=== PATIENT | male | born 1985 ===

== ENCOUNTER 2016-12-16 16:57 | Emergency (ER) | payer SELFPAY ==
[~2016-12-16] VITALS: Ht 165.1 cm; Wt 86.0 kg
[2016-12-16 16:59] VITALS: Ht 165.1 cm; Wt 86.0 kg
[2016-12-16] MEDS ORDERED: KETOROLAC 30 MG INJ IM STA (18:07)
--- NOTE | 2016-12-16 19:06 | RADRPT ---
PROCEDURE: X-ray right foot CLINICAL INDICATION: Injury to the right foot status post fall TECHNIQUE: 3 views right foot COMPARISON: None FINDINGS: Intra-articular fracture of the proximal metaphysis of the fourth metatarsal. Remaining osseous str uctures are without evident acute fracture. Soft tissue swelling over the dorsum of the foot. IMPRESSION: Intra-articular fracture of the proximal metaphysis of the fourth metatarsal. RPTAT: [facility] Physician Bibi Date Time Electronically viewed and signed by Kimmy Walker Physician on 12/16/2016 19:06 RS/
[2016-12-16] MEDS ORDERED: IBUP-1542 PO (19:23)
[2016-12-16] MEDS ORDERED: HYDR-906 PO (19:30)
--- NOTE | 2016-12-16 19:51 | ERD ---
ER Documentation Chief Complaint Date/Time DATE: 12/16/16 TIME: 19:48 Chief Complaint 10/10 r. foot pain x 1 day fall at park [facility] This is a 31-year-old male presents complaining of right dorsal foot pain status post ground-level fall that [place] a park yesterday. Patient states the pain is 10 out of 10. Patient denies taking any medications for this ROS All systems reviewed and are negative except as per history of present illness. Medications Home Meds Active Scripts Hydrocodone/Acetaminophen ([place] 5-325 Tablet) 1 Each Tablet, 1 TAB PO Q6H Y for PAIN, #20 TAB Prov:PRANAY CURIEL PA-C 12/16/16 Ibuprofen* (Ibuprofen*) 600 Mg Tablet, 600 MG PO Q6H, #30 TAB Prov:PRANAY CURIEL PA-C 12/16/16 Allergies Allergies: Coded Allergies: No Known Allergy (Unverified , 12/16/16) PMhx/Soc History of Surgery: No Anesthesia Reaction: No Hx Neurological Disorder: No Hx Respiratory Disorders: No Hx Cardiac Disorders: No Hx Psychiatric Problems: No Hx Miscellaneous Medical Probl: No Hx Alcohol Use: Yes Hx Substance Use: No Hx Tobacco Use: Yes Smoking Status: Current some day smoker Physical Exam Vitals Vital Signs Date Time Temp Pulse Resp B/P Pulse Ox O2 Delivery O2 Flow Rate FiO2 12/16/16 16:59 97.7 56 19 196/80 98 Physical Exam General: WD/WN, in no apparent distress, non-toxic appearing HENT: NC/AT Eyes: Conjunctiva normal Neck: Supple Pulm: Clear to auscultation, normal labored breathing; no wheezing/rales/ rhonchi heard CV: Good capillary refill GI: Non-distended, no guarding Back: No masses Ext: Ecchymosis noted in the right dorsal foot, tender palpation over the fourth metatarsal Neuro: Moves on all fours Skin: intact Psych: Normal mood Results 24 hrs Current Medications Medications (Trade) Dose Ordered Sig/Brittney Route PRN Reason Start Time Stop Time Status Last Admin Dose Admin Ketorolac Tromethamine (Toradol) 30 mg ONCE STAT IM 12/16/16 18:07 12/16/16 18:10 DC 12/16/16 18:53 Procedures/MDM This is a 31-year-old male presenting to the emergency department complaining of right foot pain due to a Intra-articular fracture of the proximal metaphysis of the fourth metatarsal. Is unlikely the patient has a Lisfranc fracture, compartment syndrome. There is no evidence of dislocation. In the ED patient was placed in a short leg splint, nonweightbearing and was given crutches. Patient is neurovascular intact pre-and post treatment. Discussed to follow-up with orthopedist. Discussed return the ER for any worsening sinus symptoms. He understands and agrees with plan Departure Diagnosis: Primary Impression: Metatarsal fracture Condition: Stable Patient Instructions: Fracture, Foot Referrals: [facility] YOU HAVE RECEIVED A MEDICAL SCREENING EXAM AND THE RESULTS INDICATE THAT YOU DO NOT HAVE A CONDITION THAT REQUIRES URGENT TREATMENT IN THE EMERGENCY DEPARTMENT. FURTHER EVALUATION AND TREATMENT OF YOUR CONDITION CAN WAIT UNTIL YOU ARE SEEN IN YOUR DOCTORS OFFICE WITHIN THE NEXT 1-2 DAYS. IT IS YOUR RESPONSIBILITY TO MAKE AN APPOINTMENT FOR FOLOW-UP CARE. IF YOU HAVE A PRIMARY DOCTOR --you should call your primary doctor and schedule and appointment IF YOU DO NOT HAVE A PRIMARY DOCTOR YOU CAN CALL OUR PHYSICIAN REFERRAL HOTLINE AT . IF YOU CAN NOT AFFORD TO SEE A PHYSICIAN YOU CAN CHOSE FROM THE FOLLOWING FORMERLY [facility] INSTITUTIONS: [facility] [id number] [place] [address] [facility] [address] [place] [address] [facility] + [facility] [address] [place] [address] Additional Instructions: FOLLOW UP WITH YOUR PRIMARY CARE PHYSICIAN TOMORROW, you will need a referral to see an orthopedist .Return to this facility if you are not improving as expected. Take all medicines as directed. Return to this facility if you are not improving as expected. PRANAY CURIEL PA-C Dec 16, 2016 19:50
[2016-12-16 20:14] VITALS: BP 134/65; PULSE 51; RESP 18; TEMP 98.8
== END 2016-12-16 20:13 | disposition home or self-care (01) ==
LOC: FTE 16:57
DX: S92.341A Displaced fracture of fourth metatarsal bone, right foot, initial encounter for closed fracture (principal); F17.210 Nicotine dependence, cigarettes, uncomplicated; W18.39XA Other fall on same level, initial encounter; Y92.830 Public park as the place of occurrence of the external cause
CPT/HCPCS: 29515; 73630; 96372; 99284; J1885